=== PATIENT | female | born 1980 | race Caucasian/White ===

== ENCOUNTER 2017-04-22 22:28 | Emergency (ER) | payer MEDICARE, MEDICAID ==
--- NOTE | 2017-04-22 23:42 | EDM.PDOC ---
ED HPI GENERAL MEDICAL PROBLEM - General Chief Complaint: Genitourinary Problem Stated Complaint: suprapubic catheter removed Time Seen by Provider: 04/22/17 22:46 Source of Information: Reports: Patient History Limitations: Reports: No Limitations - History of Present Illness INITIAL COMMENTS - FREE TEXT/NARRATIVE: Patient has been having her suprapubic catheter changed. They were unable to reinsert at the care center so she is here for that. She also states she has some wheezing. She is paraplegic mid abdomen down from a fall accident. No other complaints. Onset: Today - Related Data Allergies Allergy/AdvReac Type Severity Reaction Status Date / Time acetaminophen [From Tylox] Allergy Cannot Verified 12/03/16 18:25 Remember oxycodone [From Tylox] Allergy Cannot Verified 12/03/16 18:25 Remember contrast dye Allergy Cannot Uncoded 12/03/16 18:25 Remember Home Meds: Home Meds fentaNYL [Duragesic] 1 patch IDERM ASDIRECTED 12/04/16 [History] Past Medical History Gastrointestinal History: Reports: GERD, Other (See Below) Other Gastrointestinal History: neurogenic bowel Genitourinary History: Reports: Other (See Below) Other Genitourinary History: SP cath. neuromuscular dysfunction of bladder Musculoskeletal History: Reports: Other (See Below) Other Musculoskeletal History: paraplegia Psychiatric History: Reports: ADHD, Anxiety, PTSD, Schizophrenia, Other (See Below) Other Psychiatric History: personality disorder Endocrine/Metabolic History: Reports: Diabetes, Type II, Obesity/BMI 30+ - Infectious Disease History Infectious Disease History: Reports: Hepatitis C Social & Family History - Tobacco Use Smoking Status *Q: Unknown Ever Smoked ED ROS GENERAL - Review of Systems Review Of Systems: ROS reveals no pertinent complaints other than HPI. ED EXAM, RENAL/ - Physical Exam Exam: See Below Exam Limited By: No Limitations General Appearance: Alert, WD/WN, No Apparent Distress Respiratory/Chest: No Respiratory Distress, Lungs Clear, Normal Breath Sounds, No Accessory Muscle Use, Chest Non-Tender Cardiovascular: Normal Peripheral Pulses, Regular Rate, Rhythm, No Edema Neurological: Alert, Oriented, CN II-XII Intact, Normal Cognition, Normal Gait, Normal Reflexes Psychiatric: Normal Affect, Normal Mood Skin Exam: Warm, Dry, Intact, Normal Color Lymphatic: No Adenopathy Course - Vital Signs Last Recorded V/S: Last Vital Signs Temp 37.3 C 04/22/17 22:30 Pulse 77 04/22/17 22:30 Resp 18 04/22/17 22:30 BP 122/40 L 04/22/17 22:30 Pulse Ox 94 L 04/22/17 22:30 - Orders/Labs/Meds Orders: Active Orders 24 hr Category Date Time Status Nitrofurantoin [place]/Macrocryst [Macrobid] Med 04/23/17 00:35 Once 100 mg PO ONETIME ONE Medication Orders Nitrofurantoin Macrocrystals (Macrobid) 100 mg PO ONETIME ONE Stop: 04/23/17 00:36 Labs: Laboratory Tests 04/22/17 Range/Units 23:30 Urine Color Yellow (YELLOW) Urine Appearance Slightly cloudy H (CLEAR) Urine pH 7.0 (5.0-8.0) Ur Specific [place] 1.010 Urine Protein 30 H (NEGATIVE) mg/dL Urine Glucose (UA) Negative (NEGATIVE) mg/dL Urine Ketones Negative (NEGATIVE) mg/dL Urine Occult Blood Large H (NEGATIVE) Urine Nitrite Negative (NEGATIVE) Urine Bilirubin Negative (NEGATIVE) Urine Urobilinogen 0.2 (0.2) EU/dL Ur Leukocyte Esterase Large H (NEGATIVE) Urine RBC 40-50 H (NOT SEEN) /HPF Urine WBC 20-30 H (NOT SEEN) /HPF Ur Squamous Epith Cells Few H (NEGATIVE) /HPF Urine Bacteria Moderate H (NEGATIVE) /HPF Urine Mucus Few H (NEGATIVE) /LPF Meds: Medications Generic Name Dose Route Start Last Admin Trade Name Freq PRN Reason Stop Dose Admin Nitrofurantoin Macrocrystals 100 mg 04/23/17 00:35 Macrobid PO 04/23/17 00:36 ONETIME ONE - Re-Assessments/Exams Free Text/Narrative Re-Assessment/Exam: 04/22/17 23:50 I did attempt to insert her suprapubic catheter through the stoma. I did attempt to introduce a guidewire, attempted to use ultrasound. All attempts were unsuccessful. Will have nursing insert a cruz catheter, have outpatient visit to urology for replacement of catheter. Departure - Departure Time of Disposition: 00:38 Disposition: Home, Self-Care 01 Condition: Good Clinical Impression: UTI, Urinary tract infectious disease, UTI (urinary tract infection) Blocked suprapubic catheter Qualifiers: Encounter type: initial encounter Qualified Code(s): T83.090A - Other mechanical complication of cystostomy catheter, initial encounter Suprapubic catheter dysfunction Qualifiers: Encounter type: initial encounter Qualified Code(s): T83.010A - Breakdown ( mechanical) of cystostomy catheter, initial encounter - Discharge Information Instructions: Suprapubic Catheter Home Guide, Suprapubic Catheter Replacement Referrals: Shiv Wooten MD [Primary Care Provider] - Additional Instructions: We were unable to reinsert your suprapubic catheter We did insert a urethral catheter and have good urinary flow I started you on Macrobid for the UTI. Take this twice daily for 5 days The care center needs to call to get an outpatient appointment for reinsertion of your catheter via urology Your lungs sound very good, no wheezing noted. This is likely an upper airway irritation Drink plenty of water Call with any questions or concerns - Problem List & Annotations (1) Blocked suprapubic catheter SNOMED Code(s): 394407389, 274094829 Code(s): T83.090A - MECH COMPL OF CYSTOSTOMY CATHETER, INITIAL ENCOUNTER Status: Acute Priority: Low Current Visit: Yes Qualifiers: Encounter type: initial encounter Qualified Code(s): T83.090A - Other mechanical complication of cystostomy catheter, initial encounter (2) Suprapubic catheter dysfunction SNOMED Code(s): 835756303 Code(s): T83.010A - BREAKDOWN (MECHANICAL) OF CYSTOSTOMY CATHETER, INIT ENCNTR Status: Acute Priority: Low Current Visit: Yes Qualifiers: Encounter type: initial encounter Qualified Code(s): T83.010A - Breakdown ( mechanical) of cystostomy catheter, initial encounter - Problem List Review Problem List Initiated/Reviewed/Updated: Yes - My Orders Last 24 Hours: My Active Orders 04/23/17 00:35 Nitrofurantoin [place]/Macrocryst [Macrobid] 100 mg PO ONETIME ONE - Assessment/Plan Last 24 Hours: My Active Orders 04/23/17 00:35 Nitrofurantoin [place]/Macrocryst [Macrobid] 100 mg PO ONETIME ONE Assessment:: suprapubic catheter removal Plan: We were unable to reinsert your suprapubic catheter We did insert a urethral catheter and have good urinary flow I started you on Macrobid for the UTI. Take this twice daily for 5 days The care center needs to call to get an outpatient appointment for reinsertion of your catheter via urology Your lungs sound very good, no wheezing noted. This is likely an upper airway irritation Drink plenty of water Call with any questions or concerns
[2017-04-23 00:32] VITALS: BP 122/40
[2017-04-23] MEDS ORDERED: Nitrofurantoin Monohydrate/Macrocrystalline 100 MG Cap PO ONE (00:35)
== END 2017-04-23 01:00 | disposition home or self-care (01) ==
LOC: VM.ED 22:28
DX: T83.010A Breakdown (mechanical) of cystostomy catheter, initial encounter (principal); T83.090A Other mechanical complication of cystostomy catheter, initial encounter; N39.0 Urinary tract infection, site not specified; K21.9 Gastro-esophageal reflux disease without esophagitis; E11.9 Type 2 diabetes mellitus without complications; E66.9 Obesity, unspecified; Z88.8 Allergy status to other drugs, medicaments and biological substances; Z91.041 Radiographic dye allergy status
CPT/HCPCS: 51702; 81001; 99285; A9270; 99283-GF

== ENCOUNTER 2018-05-23 19:43 | Emergency (ER) | payer MEDICARE, MEDICAID ==
[2018-05-23] MEDS ORDERED: cefTRIAXone 1 GM Vial IVPUSH ONE (19:47)
[2018-05-23] MEDS ORDERED: Sodium Chloride 0.9% 10 ML Syringe FLUSH PRN (19:47)
[2018-05-23] MEDS ORDERED: Sodium Chloride 0.9% 1,000 ML IV ONE (19:47)
[2018-05-23] MEDS ORDERED: Ibuprofen 200 MG Tab PO STA (19:50)
--- NOTE | 2018-05-23 20:08 | EDM.PDOC ---
ED HPI GENERAL MEDICAL PROBLEM - General Chief Complaint: Fever Stated Complaint: fever Time Seen by Provider: 05/23/18 19:43 Source of Information: Reports: Patient History Limitations: Reports: No Limitations - History of Present Illness INITIAL COMMENTS - FREE TEXT/NARRATIVE: Patient comes into the emergency department with EMS with a complaint of fever. [place] and states she has not been feeling well for approximately 3 days. She's had chills, body aches, and fever. shelter staff had taken the patient's temperature and stated it was 105 with temporal measurement. They contacted EMS for transport to the hospital. Patient does have an indwelling catheter and has had infections in the past. Patient states that she has been nauseated and generalized fatigue over the course of last 3 days. She denies any urinary symptoms however she does have an indwelling catheter. She has noticed large amount of sediment but she does state that that can be normal. Patient has taken Tylenol approximately at 7 PM tonight. Onset: Sudden Improves with: Reports: None Worsens with: Reports: None Associated Symptoms: Reports: Fever/Chills, Loss of Appetite, Malaise, Nausea/ Vomiting. Denies: Confusion, Diaphoresis, Headaches, Seizure, Syncope Treatments CAFE LEAD: Reports: Acetaminophen, See EMS Report - Related Data Allergies Allergy/AdvReac Type Severity Reaction Status Date / Time acetaminophen [From Tylox] Allergy Cannot Verified 04/23/17 02:56 Remember oxycodone [From Tylox] Allergy Cannot Verified 04/23/17 02:56 Remember contrast dye Allergy Cannot Uncoded 04/23/17 02:56 Remember Home Meds: Home Meds fentaNYL [Fentanyl] 25 patch IDERM ASDIRECTED 04/23/17 [History] Ciprofloxacin HCl [Cipro] 500 mg PO BID 6 Days #12 tablet 05/23/18 [Rx] Past Medical History Gastrointestinal History: Reports: GERD, Hemorrhoids, Hepatitis, Other (See Below) Other Gastrointestinal History: neurogenic bowel, Hepatitis C Genitourinary History: Reports: Other (See Below) Other Genitourinary History: SP cath. neuromuscular dysfunction of bladder Musculoskeletal History: Reports: Other (See Below) Other Musculoskeletal History: paraplegia Neurological History: Reports: Other (See Below) Other Neuro History: Paraplegic Psychiatric History: Reports: ADHD, Anxiety, PTSD, Schizophrenia, Other (See Below) Other Psychiatric History: personality disorder Endocrine/Metabolic History: Reports: Diabetes, Type II, Obesity/BMI 30+ - Infectious Disease History Infectious Disease History: Reports: Hepatitis C - Past Surgical History Female Surgical History: Reports: Suprapubic Catheter Placement ED ROS GENERAL - Review of Systems Review Of Systems: See Below Constitutional: Reports: Fever, Chills, Malaise, Weakness, Fatigue, Decreased Appetite HEENT: Reports: No Symptoms Respiratory: Reports: No Symptoms Cardiovascular: Reports: No Symptoms Endocrine: Reports: No Symptoms GI/Abdominal: Reports: No Symptoms : Reports: No Symptoms Musculoskeletal: Reports: No Symptoms Skin: Reports: No Symptoms Neurological: Reports: No Symptoms Psychiatric: Reports: No Symptoms Hematologic/Lymphatic: Reports: No Symptoms Immunologic: Reports: No Symptoms ED EXAM, GENERAL - Physical Exam Exam: See Below Exam Limited By: No Limitations General Appearance: Alert, WD/WN, No Apparent Distress Head: Atraumatic, Normocephalic Neck: Normal Inspection, Supple, Non-Tender, Full Range of Motion Respiratory/Chest: No Respiratory Distress, Lungs Clear, Normal Breath Sounds, No Accessory Muscle Use Cardiovascular: Normal Peripheral Pulses, Regular Rate, Rhythm GI/Abdominal: Normal Bowel Sounds, Soft, Non-Tender, No Distention (Female) Exam: Other (cruz cath- large amount of sediment noted) Back Exam: Normal Inspection, Full Range of Motion Extremities: Normal Inspection, Normal Range of Motion Neurological: Alert, Oriented Psychiatric: Normal Affect, Normal Mood Skin Exam: Warm, Dry, Intact, Normal Color Course - Vital Signs Last Recorded V/S: Last Vital Signs Temp 39.6 C H 05/23/18 20:48 Pulse 82 05/23/18 20:48 Resp 14 05/23/18 20:48 BP 126/63 05/23/18 20:48 Pulse Ox 93 L 05/23/18 20:48 - Orders/Labs/Meds Orders: Active Orders 24 hr Category Date Time Status EKG Documentation Completion [RC] STAT Care 05/23/18 19:47 Active CULTURE BLOOD [BC] Stat Lab 05/23/18 20:02 Received CULTURE BLOOD [BC] Stat Lab 05/23/18 20:05 Received CULTURE URINE [RM] Stat Lab 05/23/18 20:34 Received UA W/MICROSCOPIC [URIN] Stat Lab 05/23/18 20:34 Ordered Sodium Chloride 0.9% [Saline Flush] Med 05/23/18 19:47 Active 10 ml FLUSH ASDIRECTED PRN Blood Culture x2 Reflex Set [OM.PC] Stat Oth 05/23/18 19:47 Ordered Peripheral IV Insertion Adult [OM.PC] Stat Oth 05/23/18 19:47 Ordered Medication Orders Sodium Chloride (Saline Flush) 10 ml FLUSH ASDIRECTED PRN PRN Reason: Keep Vein Open Labs: Laboratory Tests 05/23/18 05/23/18 05/23/18 Range/Units 20:02 20:02 20:02 WBC 13.6 H (4.0-10.0) x10^3/uL RBC 4.26 (4.00-5.50) x10^6/uL Hgb 12.7 (12.0-16.0) g/dL Hct 38.7 (33.0-47.0) % MCV 90.8 (78.0-93.0) fL MCH 29.8 (26.0-32.0) pg MCHC 32.8 (32.0-36.0) g/dL RDW Coeff of Radha 14.5 (10.0-15.0) % Plt Count 196 D (130-400) x10^3/uL Neut % (Auto) 82.0 H (50.0-80.0) % Lymph % (Auto) 5.2 L (25.0-50.0) % [place] % (Auto) 12.7 H (2.0-11.0) % Eos % (Auto) 0.0 (0.0-4.0) % Baso % (Auto) 0.1 L (0.2-1.2) % Sodium 134 L (136-145) mmol/L Potassium 3.8 (3.5-5.1) mmol/L Chloride 97 L (98-107) mmol/L Carbon Dioxide 26 (21-32) mmol/L Anion Gap 14.8 (10-20) mmol/L BUN 14 (7-18) mg/dL Creatinine 0.8 (0.55-1.02) mg/dL Est Cr Clr Drug Dosing TNP Estimated GFR (MDRD) > 60 Glucose 169 H (74-106) mg/dL Lactic Acid 0.8 (0.4-2.0) mmol/L Calcium 9.0 (8.5-10.1) mg/dL Corrected Calcium 9.72 (8.5-10.1) mg/dL Total Bilirubin 0.4 (0.2-1.0) mg/dL AST 16 (15-37) U/L ALT 26 (14-59) U/L Alkaline Phosphatase 40 L (46-116) U/L Total Protein 7.7 (6.4-8.2) g/dL Albumin 3.1 L (3.4-5.0) g/dL Globulin 4.6 Albumin/Globulin Ratio 0.67 Urine Color (YELLOW) Urine Appearance (CLEAR) Urine pH (5.0-8.0) Ur Specific [place] Urine Protein (NEGATIVE) mg/dL Urine Glucose (UA) (NEGATIVE) mg/dL Urine Ketones (NEGATIVE) mg/dL Urine Occult Blood (NEGATIVE) Urine Nitrite (NEGATIVE) Urine Bilirubin (NEGATIVE) Urine Urobilinogen (0.2) EU/dL Ur Leukocyte Esterase (NEGATIVE) Urine RBC (NOT SEEN) /HPF Urine WBC (NOT SEEN) /HPF Ur Squamous Epith Cells (NEGATIVE) /HPF Urine Bacteria (NEGATIVE) /HPF Urine Mucus (NEGATIVE) /LPF 05/23/18 Range/Units 20:34 WBC (4.0-10.0) x10^3/uL RBC (4.00-5.50) x10^6/uL Hgb (12.0-16.0) g/dL Hct (33.0-47.0) % MCV (78.0-93.0) fL MCH (26.0-32.0) pg MCHC (32.0-36.0) g/dL RDW Coeff of Radha (10.0-15.0) % Plt Count (130-400) x10^3/uL Neut % (Auto) (50.0-80.0) % Lymph % (Auto) (25.0-50.0) % [place] % (Auto) (2.0-11.0) % Eos % (Auto) (0.0-4.0) % Baso % (Auto) (0.2-1.2) % Sodium (136-145) mmol/L Potassium (3.5-5.1) mmol/L Chloride (98-107) mmol/L Carbon Dioxide (21-32) mmol/L Anion Gap (10-20) mmol/L BUN (7-18) mg/dL Creatinine (0.55-1.02) mg/dL Est Cr Clr Drug Dosing Estimated GFR (MDRD) Glucose (74-106) mg/dL Lactic Acid (0.4-2.0) mmol/L Calcium (8.5-10.1) mg/dL Corrected Calcium (8.5-10.1) mg/dL Total Bilirubin (0.2-1.0) mg/dL AST (15-37) U/L ALT (14-59) U/L Alkaline Phosphatase (46-116) U/L Total Protein (6.4-8.2) g/dL Albumin (3.4-5.0) g/dL Globulin Albumin/Globulin Ratio Urine Color Yellow (YELLOW) Urine Appearance Clear (CLEAR) Urine pH 7.5 (5.0-8.0) Ur Specific [place] 1.015 Urine Protein 100 H (NEGATIVE) mg/dL Urine Glucose (UA) Negative (NEGATIVE) mg/dL Urine Ketones Negative (NEGATIVE) mg/dL Urine Occult Blood Small H (NEGATIVE) Urine Nitrite Negative (NEGATIVE) Urine Bilirubin Negative (NEGATIVE) Urine Urobilinogen 0.2 (0.2) EU/dL Ur Leukocyte Esterase Large H (NEGATIVE) Urine RBC 5-10 H (NOT SEEN) /HPF Urine WBC 10-20 H (NOT SEEN) /HPF Ur Squamous Epith Cells Few H (NEGATIVE) /HPF Urine Bacteria Few H (NEGATIVE) /HPF Urine Mucus Few H (NEGATIVE) /LPF Meds: Medications Generic Name Dose Route Start Last Admin Trade Name Freq PRN Reason Stop Dose Admin Sodium Chloride 10 ml 05/23/18 19:47 Saline Flush FLUSH ASDIRECTED PRN Keep Vein Open Discontinued Medications Generic Name Dose Route Start Last Admin Trade Name Freq PRN Reason Stop Dose Admin Ceftriaxone Sodium 1 gm 05/23/18 19:47 05/23/18 20:11 Rocephin IVPUSH 05/23/18 19:48 1 gm ONETIME ONE Administration Ciprofloxacin 1 packet 05/23/18 20:46 05/23/18 21:21 Take Home: Ciprofloxacin 500 Mg, 2 Tab Pack PO 05/23/18 20:47 1 packet ONETIME ONE Administration Sodium Chloride 1,000 mls @ 1,000 mls/hr 05/23/18 19:47 05/23/18 20:11 Normal Saline IV 05/23/18 20:46 1,000 mls/hr ONETIME ONE Administration Ibuprofen 600 mg 05/23/18 19:50 05/23/18 20:00 Motrin PO 05/23/18 19:51 600 mg NOW STA Administration Departure - Departure Time of Disposition: 22:00 Disposition: DC/Tfer to [facility] 03 Condition: Good Clinical Impression: Complicated UTI (urinary tract infection) - Discharge Information *PRESCRIPTION DRUG MONITORING PROGRAM REVIEWED*: Not Applicable *COPY OF PRESCRIPTION DRUG MONITORING REPORT IN PATIENT LEILA: Not Applicable Prescriptions: Ciprofloxacin HCl [Cipro] 500 mg PO BID 6 Days #12 tablet Instructions: Catheter-Associated Urinary Tract Infection FAQs - [place], You've Been Prescribed Antibiotics in the Hospital for Infection-[facility] (01/21) Referrals: Shiv Wooten MD [Primary Care Provider] - Forms: ED Department Discharge Additional Instructions: 1. Rest 2. Increase water intake 3. Take antibiotic as prescribed 4. Urine culture has been sent. If results come back positive and is resistant to current medication you are on. Staff will contact you and switch the antibiotic to an antibiotic that is sensitive. 5. Follow up with PCP if not better within the next week 6. Call with any questions of concern - My Orders Last 24 Hours: My Active Orders 05/23/18 19:47 EKG Documentation Completion [RC] STAT Sodium Chloride 0.9% [Saline Flush] 10 ml FLUSH ASDIRECTED PRN Blood Culture x2 Reflex Set [OM.PC] Stat Peripheral IV Insertion Adult [OM.PC] Stat 05/23/18 20:02 CULTURE BLOOD [BC] Stat 05/23/18 20:05 CULTURE BLOOD [BC] Stat 05/23/18 20:34 CULTURE URINE [RM] Stat UA W/MICROSCOPIC [URIN] Stat - Assessment/Plan Last 24 Hours: My Active Orders 05/23/18 19:47 EKG Documentation Completion [RC] STAT Sodium Chloride 0.9% [Saline Flush] 10 ml FLUSH ASDIRECTED PRN Blood Culture x2 Reflex Set [OM.PC] Stat Peripheral IV Insertion Adult [OM.PC] Stat 05/23/18 20:02 CULTURE BLOOD [BC] Stat 05/23/18 20:05 CULTURE BLOOD [BC] Stat 05/23/18 20:34 CULTURE URINE [RM] Stat UA W/MICROSCOPIC [URIN] Stat Assessment:: 1. fever Plan: 1. Labs completed in the ER. Results reviewed with patient 2. Urine sample collected. Results patient 3. IV started in the ER with IV hydration ordered 4. Rocephin given in the ER patient upon arrival 5. Prescription for Cipro 500 mg twice a day 6 days with the patient. Patient was also sent home with a one-day supply of Cipro for the pharmacy is not open tomorrow.
[2018-05-23 20:36] LABS: CHLORIDE,CL 97 mmol/L (98-107); SODIUM,NA 134 mmol/L (136-145)
[2018-05-23 20:37] LABS: ANION GAP 14.8 mmol/L (10-20)
[2018-05-23] MEDS ORDERED: Take Home: Ciprofloxacin 500 MG Tab, 2 Tab Pack PO ONE (20:46)
[2018-05-23 20:49] VITALS: BP 126/63
== END 2018-05-23 21:36 ==
LOC: VM.ED 19:43
DX: N39.0 Urinary tract infection, site not specified (principal); E11.9 Type 2 diabetes mellitus without complications; Z88.6 Allergy status to analgesic agent
CPT/HCPCS: 36415; 80053; 81001; 83605; 85025; 87040; 87086; 87088; 87186; 96365; 96375; 99284-GF; 99285; A9270-GY; J0696; J7030

== ENCOUNTER 2018-06-21 09:45 | Emergency (ER) | payer MEDICARE, MEDICAID ==
[2018-06-21] MEDS ORDERED: Sodium Chloride 0.9% 10 ML Syringe FLUSH PRN (09:53)
[2018-06-21] MEDS ORDERED: Sodium Chloride 0.9% 1,000 ML IV ONE (09:53)
--- NOTE | 2018-06-21 10:32 | EDM.PDOCBH ---
ED HPI GENERAL MEDICAL PROBLEM - General Chief Complaint: Neurological Problem Stated Complaint: AMS; lethargy Time Seen by Provider: 06/21/18 09:45 Source of Information: Reports: EMS, EMS Notes Reviewed, [facility] Records, RN, RN Notes Reviewed History Limitations: Reports: No Limitations - History of Present Illness INITIAL COMMENTS - FREE TEXT/NARRATIVE: Patient is brought to the ED at [facility] via EMS for AMS, lethargy, and jerking movements. There is suspicion of drug ingestion from the [facility] staff. The patient apparently left the [facility] yesterday afternoon with her SO. When she returned, the [facility] staff stated the patient "seemed a little off." They staff noticed this morning uncontrolled jerking movements. Patient apparently return to the [facility] with 2 cartons of e-Cigs. Patient did get her morning Zanaflex today. Patient is a known paraplegic. Patient has been minimally responsive at times. Patient was having significant twitching of upper extremities and head. Onset: Today - Related Data Allergies Allergy/AdvReac Type Severity Reaction Status Date / Time acetaminophen [From Tylox] Allergy Cannot Verified 05/24/18 01:16 Remember oxycodone [From Tylox] Allergy Cannot Verified 05/24/18 01:16 Remember contrast dye Allergy Cannot Uncoded 04/23/17 02:56 Remember Home Meds: Home Meds fentaNYL [Fentanyl] 25 patch IDERM ASDIRECTED 04/23/17 [History] Ciprofloxacin HCl [Cipro] 500 mg PO BID 6 Days #12 tablet 05/23/18 [Rx] Nitrofurantoin Monohyd/M-Cryst [Macrobid 100 mg Capsule] 100 mg PO BID 6 Days # 12 capsule 06/21/18 [Rx] Past Medical History Gastrointestinal History: Reports: GERD, Hemorrhoids, Hepatitis, Other (See Below) Other Gastrointestinal History: neurogenic bowel, Hepatitis C Genitourinary History: Reports: Other (See Below) Other Genitourinary History: SP cath. neuromuscular dysfunction of bladder Musculoskeletal History: Reports: Other (See Below) Other Musculoskeletal History: paraplegia Neurological History: Reports: Other (See Below) Other Neuro History: Paraplegic Psychiatric History: Reports: ADHD, Anxiety, PTSD, Schizophrenia, Other (See Below) Other Psychiatric History: personality disorder Endocrine/Metabolic History: Reports: Diabetes, Type II, Obesity/BMI 30+ - Infectious Disease History Infectious Disease History: Reports: Hepatitis C - Past Surgical History Female Surgical History: Reports: Suprapubic Catheter Placement ED ROS GENERAL - Review of Systems Review Of Systems: Unable To Obtain (due to patient condition) ED EXAM, BEHAVIORAL HEALTH - Physical Exam Exam: See Below Exam Limited By: Altered Mental Status General Appearance: Alert, Lethargic Eye Exam: Bilateral Eye: Normal Inspection, PERRL Respiratory/Chest: No Respiratory Distress, Lungs Clear, Normal Breath Sounds Cardiovascular: Normal Peripheral Pulses, Tachycardia GI/Abdominal: Normal Bowel Sounds, Soft, Non-Tender (Female) Exam: Other (Akers catheter in place) Neurological: Other (alert with obnoxious stimuli; mostly inattentive) Skin Exam: Warm, Dry COURSE, BEHAVIORAL HEALTH COMP - Course Vital Signs: Last Vital Signs Temp 36.7 C 06/21/18 09:45 Pulse 101 H 06/21/18 09:45 Resp 16 06/21/18 09:45 BP 121/64 06/21/18 09:45 Pulse Ox 88 L 06/21/18 09:45 Orders, Labs, Meds: Active Orders 24 hr Category Date Time Status EKG 12 Lead [EKG Documentation Completion] [RC] STAT Care 06/21/18 09:52 Active Head wo Cont [CT] Stat Exams 06/21/18 09:53 Taken CULTURE BLOOD [BC] Stat Lab 06/21/18 11:46 Received CULTURE BLOOD [BC] Stat Lab 06/21/18 11:53 Results MISC TEST Stat Lab 06/21/18 11:43 Received SALICYLATE [REF] Stat Lab 06/21/18 10:15 Received Sodium Chloride 0.9% [Saline Flush] Med 06/21/18 09:53 Active 10 ml FLUSH ASDIRECTED PRN Blood Culture x2 Reflex Set [OM.PC] Stat Oth 06/21/18 11:33 Ordered Peripheral IV Insertion Adult [OM.PC] Routine Oth 06/21/18 09:53 Ordered Medication Orders Sodium Chloride (Saline Flush) 10 ml FLUSH ASDIRECTED PRN PRN Reason: Keep Vein Open Laboratory Tests 06/21/18 06/21/18 06/21/18 Range/Units 10:15 10:15 10:15 WBC 12.2 H (4.0-10.0) x10^3/uL RBC 4.25 (4.00-5.50) x10^6/uL Hgb 12.6 (12.0-16.0) g/dL Hct 39.6 (33.0-47.0) % MCV 93.2 H (78.0-93.0) fL MCH 29.6 (26.0-32.0) pg MCHC 31.8 L (32.0-36.0) g/dL RDW Coeff of Radha 14.8 (10.0-15.0) % Plt Count 319 D (130-400) x10^3/uL Neut % (Auto) 88.8 H (50.0-80.0) % Lymph % (Auto) 7.3 L (25.0-50.0) % [place] % (Auto) 3.5 (2.0-11.0) % Eos % (Auto) 0.2 (0.0-4.0) % Baso % (Auto) 0.2 (0.2-1.2) % POC ABG pH (7.35-7.45) POC ABG pCO2 (35-45) mmHG POC ABG pO2 (80-105) mmHG POC ABG HCO3 (22-26) mmol/L POC ABG Total CO2 (23-27) mmol/L POC ABG O2 Sat (95-98) % POC ABG Base Excess (-2-3) mmol/L POC FiO2 Sodium 138 (136-145) mmol/L Potassium 3.7 (3.5-5.1) mmol/L Chloride 100 (98-107) mmol/L Carbon Dioxide 27 (21-32) mmol/L Anion Gap 14.7 (10-20) mmol/L BUN 13 (7-18) mg/dL Creatinine 1.0 (0.55-1.02) mg/dL Est Cr Clr Drug Dosing TNP Estimated GFR (MDRD) > 60 Glucose 169 H (74-106) mg/dL Lactic Acid 3.3 H* (0.4-2.0) mmol/L Calcium 9.5 (8.5-10.1) mg/dL Corrected Calcium 9.90 (8.5-10.1) mg/dL Total Bilirubin 0.3 (0.2-1.0) mg/dL AST 19 (15-37) U/L ALT 25 (14-59) U/L Alkaline Phosphatase 44 L (46-116) U/L Creatine Kinase 71 (26-192) U/L Troponin I < 0.017 (<=0.056) ng/mL C-Reactive Protein 2.8 H (<=0.9) mg/dL Total Protein 8.0 (6.4-8.2) g/dL Albumin 3.5 (3.4-5.0) g/dL Globulin 4.5 Albumin/Globulin Ratio 0.78 Urine Color (YELLOW) Urine Appearance (CLEAR) Urine pH (5.0-8.0) Ur Specific [place] Urine Protein (NEGATIVE) mg/dL Urine Glucose (UA) (NEGATIVE) mg/dL Urine Ketones (NEGATIVE) mg/dL Urine Occult Blood (NEGATIVE) Urine Nitrite (NEGATIVE) Urine Bilirubin (NEGATIVE) Urine Urobilinogen (0.2) EU/dL Ur Leukocyte Esterase (NEGATIVE) Urine RBC (NOT SEEN) /HPF Urine WBC (NOT SEEN) /HPF Ur Squamous Epith Cells (NEGATIVE) /HPF Amorphous Sediment Urine Bacteria (NEGATIVE) /HPF Urine Mucus (NEGATIVE) /LPF Urine Opiates Screen (NEGATIVE) Ur Buprenorphine Scrn (NEGATIVE) Ur Oxycodone Screen (NEGATIVE) Urine Methadone Screen (NEGATIVE) Acetaminophen 0 L (10-30) ug/ml Ur Barbiturates Screen (NEGATIVE) Ur Tricyclics Screen (NEGATIVE) Ur Amphetamine Screen (NEGATIVE) U Methamphetamines Scrn (NEGATIVE) Urine MDMA Screen (NEGATIVE) U Benzodiazepines Scrn (NEGATIVE) U Cocaine Metab Screen (NEGATIVE) U Marijuana (THC) Screen (NEGATIVE) Ethyl Alcohol < 3 (0-3) mg/dL 06/21/18 06/21/18 06/21/18 Range/Units 10:30 11:43 11:43 WBC (4.0-10.0) x10^3/uL RBC (4.00-5.50) x10^6/uL Hgb (12.0-16.0) g/dL Hct (33.0-47.0) % MCV (78.0-93.0) fL MCH (26.0-32.0) pg MCHC (32.0-36.0) g/dL RDW Coeff of Radha (10.0-15.0) % Plt Count (130-400) x10^3/uL Neut % (Auto) (50.0-80.0) % Lymph % (Auto) (25.0-50.0) % [place] % (Auto) (2.0-11.0) % Eos % (Auto) (0.0-4.0) % Baso % (Auto) (0.2-1.2) % POC ABG pH 7.432 (7.35-7.45) POC ABG pCO2 42 (35-45) mmHG POC ABG pO2 88 (80-105) mmHG POC ABG HCO3 28 H (22-26) mmol/L POC ABG Total CO2 30 H (23-27) mmol/L POC ABG O2 Sat 97 (95-98) % POC ABG Base Excess 4 H (-2-3) mmol/L POC FiO2 0.28 Sodium (136-145) mmol/L Potassium (3.5-5.1) mmol/L Chloride (98-107) mmol/L Carbon Dioxide (21-32) mmol/L Anion Gap (10-20) mmol/L BUN (7-18) mg/dL Creatinine (0.55-1.02) mg/dL Est Cr Clr Drug Dosing Estimated GFR (MDRD) Glucose (74-106) mg/dL Lactic Acid (0.4-2.0) mmol/L Calcium (8.5-10.1) mg/dL Corrected Calcium (8.5-10.1) mg/dL Total Bilirubin (0.2-1.0) mg/dL AST (15-37) U/L ALT (14-59) U/L Alkaline Phosphatase (46-116) U/L Creatine Kinase (26-192) U/L Troponin I (<=0.056) ng/mL C-Reactive Protein (<=0.9) mg/dL Total Protein (6.4-8.2) g/dL Albumin (3.4-5.0) g/dL Globulin Albumin/Globulin Ratio Urine Color Yellow (YELLOW) Urine Appearance Cloudy H (CLEAR) Urine pH 8.5 H (5.0-8.0) Ur Specific [place] 1.015 Urine Protein 30 H (NEGATIVE) mg/dL Urine Glucose (UA) Negative (NEGATIVE) mg/dL Urine Ketones Negative (NEGATIVE) mg/dL Urine Occult Blood Negative (NEGATIVE) Urine Nitrite Positive H (NEGATIVE) Urine Bilirubin Negative (NEGATIVE) Urine Urobilinogen 0.2 (0.2) EU/dL Ur Leukocyte Esterase Large H (NEGATIVE) Urine RBC 0-5 (NOT SEEN) /HPF Urine WBC 5-10 H (NOT SEEN) /HPF Ur Squamous Epith Cells Rare (NEGATIVE) /HPF Amorphous Sediment Many Urine Bacteria Rare (NEGATIVE) /HPF Urine Mucus Rare H (NEGATIVE) /LPF Urine Opiates Screen Negative (NEGATIVE) Ur Buprenorphine Scrn Negative (NEGATIVE) Ur Oxycodone Screen Negative (NEGATIVE) Urine Methadone Screen Negative (NEGATIVE) Acetaminophen (10-30) ug/ml Ur Barbiturates Screen Negative (NEGATIVE) Ur Tricyclics Screen Positive H (NEGATIVE) Ur Amphetamine Screen Negative (NEGATIVE) U Methamphetamines Scrn Negative (NEGATIVE) Urine MDMA Screen Negative (NEGATIVE) U Benzodiazepines Scrn Negative (NEGATIVE) U Cocaine Metab Screen Negative (NEGATIVE) U Marijuana (THC) Screen Negative (NEGATIVE) Ethyl Alcohol (0-3) mg/dL Medications Generic Name Dose Route Start Last Admin Trade Name Freq PRN Reason Stop Dose Admin Sodium Chloride 10 ml 06/21/18 09:53 Saline Flush FLUSH ASDIRECTED PRN Keep Vein Open Discontinued Medications Generic Name Dose Route Start Last Admin Trade Name Freq PRN Reason Stop Dose Admin Ceftriaxone Sodium 1 gm 06/21/18 11:32 06/21/18 11:38 Rocephin IVPUSH 06/21/18 11:33 1 gm STAT ONE Administration Sodium Chloride 1,000 mls @ 999 mls/hr 06/21/18 09:53 06/21/18 10:50 Normal Saline IV 06/21/18 10:53 999 mls/hr ONETIME ONE Administration Re-Assessment/Re-Exam: CT Head: No plain CT evidence of acute intracranial process See scanned report in EMR for details Departure - Departure Time of Disposition: 12:44 Disposition: DC/Tfer to [facility] Condition: Good Clinical Impression: Acute cystitis without hematuria - Discharge Information *PRESCRIPTION DRUG MONITORING PROGRAM REVIEWED*: Not Applicable *COPY OF PRESCRIPTION DRUG MONITORING REPORT IN PATIENT LEILA: Not Applicable Prescriptions: Nitrofurantoin Monohyd/M-Cryst [Macrobid 100 mg Capsule] 100 mg PO BID 6 Days # 12 capsule Instructions: Urinary Tract Infection, Adult Referrals: PCP,Unobtain [Primary Care Provider] - Forms: ED Department Discharge Additional Instructions: 1. Stay well hydrated and rest 2. Take antibiotic for the full course, even if you are feeling better 3. May try cranberry juice 4. See your Primary as symptoms warrant - Problem List Review Problem List Initiated/Reviewed/Updated: Yes - My Orders Last 24 Hours: My Active Orders 06/21/18 09:52 EKG 12 Lead [EKG Documentation Completion] [RC] STAT 06/21/18 09:53 Head wo Cont [CT] Stat Sodium Chloride 0.9% [Saline Flush] 10 ml FLUSH ASDIRECTED PRN Peripheral IV Insertion Adult [OM.PC] Routine 06/21/18 10:15 SALICYLATE [REF] Stat 06/21/18 11:33 Blood Culture x2 Reflex Set [OM.PC] Stat 06/21/18 11:43 MISC TEST Stat 06/21/18 11:46 CULTURE BLOOD [BC] Stat 06/21/18 11:53 CULTURE BLOOD [BC] Stat - Assessment/Plan Last 24 Hours: My Active Orders 06/21/18 09:52 EKG 12 Lead [EKG Documentation Completion] [RC] STAT 06/21/18 09:53 Head wo Cont [CT] Stat Sodium Chloride 0.9% [Saline Flush] 10 ml FLUSH ASDIRECTED PRN Peripheral IV Insertion Adult [OM.PC] Routine 06/21/18 10:15 SALICYLATE [REF] Stat 06/21/18 11:33 Blood Culture x2 Reflex Set [OM.PC] Stat 06/21/18 11:43 MISC TEST Stat 06/21/18 11:46 CULTURE BLOOD [BC] Stat 06/21/18 11:53 CULTURE BLOOD [BC] Stat Assessment:: Acute cystitis w/o hematuria Plan: Labs and CT scan discussed. CT scan negative. Patient given Rocephin for sepsis protocol. UTI positive. Will treat with Macrobid PO. Patient may return to [facility] as she is hemodynamically stable. No medical necessity for admission.
[2018-06-21 11:06] LABS: CHLORIDE,CL 100 mmol/L (98-107); SODIUM,NA 138 mmol/L (136-145)
[2018-06-21 11:09] LABS: ACETAMINOPHEN 0 ug/ml (10-30); ANION GAP 14.7 mmol/L (10-20)
[2018-06-21 11:32] VITALS: BP 121/64
[2018-06-21] MEDS ORDERED: cefTRIAXone 1 GM Vial IVPUSH ONE (11:32)
[2018-06-21] MEDS ORDERED: Take Home: Nitrofurantoin Monohydrate/Macrocrystalline 100 MG, 2 Cap Pack PO ONE (12:49)
== END 2018-06-21 13:15 ==
LOC: VM.ED 09:45
DX: N30.00 Acute cystitis without hematuria (principal); Z88.8 Allergy status to other drugs, medicaments and biological substances
CPT/HCPCS: 36415; 36600; 70450; 80053; 80305-QW; 80337; 80369; 81001; 82550; 82803; 83605; 84484; 85025; 86140; 87040; 93005; 96361; 96374; 99285; A9270-GY; G0480; J0696; J7030